=== PATIENT | female | born 1965 | race Caucasian/White ===

== ENCOUNTER 2017-07-20 10:15 | Inpatient (IN) | payer OTHER, MEDICAID ==
[~2017-07-20] VITALS: Ht 165.1 cm; Wt 95.3 kg
[~2017-07-20 10:15] MED LIST: TEMA30CA5 PO; TRAZ300T2 PO
[2017-07-20] MEDS ORDERED: CEFAZOLIN 1 GM IVPB PREMIX 50 ML IV ONE (10:30)
[2017-07-20] MEDS ORDERED: BUPIVACAINE /PF 0.25% 30 ML VIAL INJ ONE (13:07)
[2017-07-20] MEDS ORDERED: LR 1,000 ML IV.SOLN IV ONE (13:07)
[2017-07-20] MEDS ORDERED: GLYCOPYRROLATE 0.2 MG/ML VIAL IJ ONE (13:07)
[2017-07-20] MEDS ORDERED: SEVOFLURANE 15 MIN GAS INH ONE (13:07)
[2017-07-20] MEDS ORDERED: SUCCINYLCHOLINE CHLORIDE 20 MG/ML(QUELICIN) IVP ONE (13:07)
[2017-07-20] MEDS ORDERED: DEXAMETHASONE SOD PHOSPHATE 4 MG/ML VIAL IVP ONE (13:07)
[2017-07-20] MEDS ORDERED: HYDROmorphone 2 MG/ML VIAL IVP ONE (13:07)
[2017-07-20] MEDS ORDERED: fentaNYL CITRATE/PF 100 MCG/2 ML AMP IVP ONE (13:07)
[2017-07-20] MEDS ORDERED: MIDAZOLAM HCL 5 MG/5 ML VIAL IVP ONE (13:07)
[2017-07-20] MEDS ORDERED: METOCLOPRAMIDE HCL 10 MG/2 ML VIAL IVP ONE (13:07)
[2017-07-20] MEDS ORDERED: ROCURONIUM BROMIDE 10 MG/ML (ZEMURON) IV ONE (13:07)
[2017-07-20] MEDS ORDERED: NS IRRIG SOLN 1000 ML IR ONE (13:07)
[2017-07-20] MEDS ORDERED: PROPOFOL 200MG/ 20ML VIAL (DIPRIVAN) IV ONE (13:07)
[2017-07-20] MEDS ORDERED: KETOROLAC TROMETHAMINE 30 MG VIAL IVP ONE (13:07)
[2017-07-20] MEDS ORDERED: POLYMYXIN 500,000/BACIT.10,000 UNITS in NS IRR 1 L IR ONE (13:32)
[2017-07-20] MEDS ORDERED: LR 1,000 ML IV ONE (14:38)
[2017-07-20] MEDS ORDERED: fentaNYL CITRATE/PF 100 MCG/2 ML AMP IVP PRN (14:45)
[2017-07-20] MEDS ORDERED: NALOXONE HCL 0.4 MG/ML AMP (NARCAN) IVP PRN (14:45)
[2017-07-20] MEDS ORDERED: DIPHENHYDRAMINE INJ 50 MG/ML VIAL IVP PRN (14:45)
[2017-07-20] MEDS ORDERED: ePHEDrine sulfate 50 MG/ML VIAL IVP PRN (14:45)
[2017-07-20] MEDS ORDERED: ONDANSETRON HCL 4 MG/2 ML VIAL IVP PRN ×3 (14:45→15:45)
[2017-07-20] MEDS ORDERED: NALBUPHINE HCL 10 MG/ML AMP IVP PRN (14:45)
[2017-07-20] MEDS ORDERED: D5/0.45 NS 1,000 ML IV SCH (15:33)
[2017-07-20] MEDS ORDERED: HYDROmorphone 1 MG INJ. 1 MG/ML AMPUL IVP PRN (15:45)
[2017-07-20] MEDS ORDERED: ACETAMINOPHEN 325 MG TABLET PO PRN (15:45)
[2017-07-20] MEDS ORDERED: HYDROcodone/ACETAMIN 5-325 MG TAB (NORCO/ VICODIN) PO PRN (15:45)
[2017-07-20] MEDS ORDERED: fentaNYL CITRATE/PF 100 MCG/2 ML AMP ONE ×2 (16:06→16:39)
[2017-07-20 17:00] VITALS: BP_SYST 137
[2017-07-20 17:06] VITALS: BP_SYST 137
[2017-07-20] MEDS: HYDROcodone/ACETAMIN 5-325 MG TAB (NORCO/ VICODIN) PO PRN (18:24)
[2017-07-20] MEDS: CEFAZOLIN 1 GM IVPB PREMIX 50 ML IV SCH (18:27)
[2017-07-20] MEDS: PROMETHAZINE HCL 25 MG/ML AMP IM PRN (22:12)
[2017-07-20] MEDS: FAMOTIDINE PF 20 MG/2 ML VIAL IVP SCH (22:13)
[2017-07-20] MEDS: MEPERIDINE HCL/PF 100 MG/ML AMP IM PRN (22:16)
[2017-07-21 00:09] VITALS: BP_SYST 148
[2017-07-21] MEDS: PROMETHAZINE HCL 25 MG/ML AMP IM PRN (03:38)
[2017-07-21] MEDS: MEPERIDINE HCL/PF 100 MG/ML AMP IM PRN (03:38)
[2017-07-21] MEDS: CEFAZOLIN 1 GM IVPB PREMIX 50 ML IV SCH (03:39)
[2017-07-21 08:15] VITALS: BP_SYST 129
[2017-07-21] MEDS: HYDROcodone/ACETAMIN 5-325 MG TAB (NORCO/ VICODIN) PO PRN (09:04)
[2017-07-21] MEDS: FAMOTIDINE PF 20 MG/2 ML VIAL IVP SCH (09:04)
[2017-07-21 12:11] VITALS: BP_SYST 143
[2017-07-21 12:43] VITALS: BP_SYST 143
== END 2017-07-21 13:20 | disposition home or self-care (01) | DRG 337 ==
LOC: EDSTATUS 10:15 → SMU 10:19
PROVIDERS: ADMIT Colon & Rectal Surgery; ATTEND Colon & Rectal Surgery
PROC: 0DNW4ZZ Release Peritoneum, Percutaneous Endoscopic Approach (ICD-10-PCS; 2017-07-20)
PROC: 8E0W4CZ Robotic Assisted Procedure of Trunk Region, Percutaneous Endoscopic Approach (ICD-10-PCS; 2017-07-20)
PROC: 0WUF4JZ Supplement Abdominal Wall with Synthetic Substitute, Percutaneous Endoscopic Approach (ICD-10-PCS; principal; 2017-07-20 12:40)
DX: K43.9 Ventral hernia without obstruction or gangrene (principal); G62.9 Polyneuropathy, unspecified; F32.9 Major depressive disorder, single episode, unspecified; K66.0 Peritoneal adhesions (postprocedural) (postinfection); F41.9 Anxiety disorder, unspecified; M54.16 Radiculopathy, lumbar region; E66.3 Overweight; Z68.34 Body mass index [BMI] 34.0-34.9, adult; Z86.718 Personal history of other venous thrombosis and embolism; Z87.442 Personal history of urinary calculi
CPT/HCPCS: 87081; C1781; J0330; J0690; J1100; J1170; J1885; J2175; J2250; J2550; J2704; J2765; J3010; J3490; J7120